=== PATIENT | female | born 1970 | race Caucasian/White ===

== ENCOUNTER 2018-06-12 11:46 | Emergency (ER) | payer BC ==
[~2018-06-12] VITALS: Ht 162.6 cm; Wt 86.4 kg
[2018-06-12 11:52] VITALS: TEMP 98.6
[2018-06-12] MEDS ORDERED: NEXIUM 40MG40 MG PO (12:42)
[2018-06-12] MEDS ORDERED: LYRICA 75MG CAP75 MG PO (12:42)
[2018-06-12] MEDS ORDERED: MELATONIN5 M1 PO (12:43)
[2018-06-12] MEDS ORDERED: WELLBUTRIN 100100 MG PO (12:43)
[2018-06-12] MEDS ORDERED: ZOFRAN 4MG T4 MG/TAB PO (12:44)
[2018-06-12] MEDS ORDERED: RITALIN LA30 MG PO (12:44)
[2018-06-12] MEDS ORDERED: RELISTOR I12 MG/0.6 SQ (12:45)
[2018-06-12] MEDS ORDERED: NORFLEX 10100 MG/TAB PO (12:46)
[2018-06-12] MEDS ORDERED: RESTORIL30 MG PO (12:47)
[2018-06-12] MEDS ORDERED: ULTRAM 50MG TAB50 MG PO (12:47)
[2018-06-12] MEDS ORDERED: INTRATHECAL PUMP (12:50)
[2018-06-12 13:25] VITALS: BP 139/77; PULSE 66
== END 2018-06-12 13:47 | disposition home or self-care (01) ==
LOC: COL.ER 11:46
DX: G89.29 Other chronic pain (principal); M54.6 Pain in thoracic spine; K21.9 Gastro-esophageal reflux disease without esophagitis; Z98.890 Other specified postprocedural states
CPT/HCPCS: J1170; J2550; J2930